=== PATIENT | female | born 1990 | race Caucasian/White ===

== ENCOUNTER 2023-11-05 09:07 | Outpatient (CLI) | payer MEDICAID ==
[2023-11-05] MEDS ORDERED: iohexol 350MG/ML 100ml bottle IV ONE (09:29)
== END 2023-11-05 23:59 | disposition home or self-care (01) ==
LOC: RAD 09:07
PROVIDERS: ATTEND Student in an Organized Health Care Education/Training Program
DX: T71.193A Asphyxiation due to mechanical threat to breathing due to other causes, assault, initial encounter (principal); Y93.89 Activity, other specified
CPT/HCPCS: 70498; Q9967